=== PATIENT | female | born 1955 | race Hispanic/Latino ===

== ENCOUNTER 2020-06-19 10:05 | Observation (INO) | payer OTHER ==
[~2020-06-19] VITALS: Ht 154.9 cm; Wt 75.1 kg
[2020-06-19 10:46] LABS: BASOPHILS % 0.6 % (0.0-1.0); EOSINOPHILS # (AUTO) 0.1 (0.0-0.4); EOSINOPHILS % 1.7 % (0.0-6.0); HEMATOCRIT 37.7 % (34.2-44.1); HEMOGLOBIN 12.6 g/dL (12.0-16.0); LYMPHOCYTES # (AUTO) 2.4 (1.0-3.2); LYMPHOCYTES % 36.4 % (18.0-39.1); MEAN CORPUSCULAR HEMOGLOBIN 30.7 pg (28-32); MEAN CORPUSCULAR HGB CONC 33.4 g/dL (31-35); MEAN CORPUSCULAR VOLUME 91.7 fL (81-99); MONOCYTES # (AUTO) 0.5 (0.2-0.8); MONOCYTES % 7.2 % (4.4-11.3); NEUTROPHILS # (AUTO) 3.5 (2.1-6.9); NEUTROPHILS % 53.9 % (38.7-80.0); PLATELET COUNT 254 x10e3/uL (140-360); RED BLOOD COUNT 4.11 x10e6/uL (3.6-5.1); RED CELL DISTRIBUTION WIDTH 11.9 % (11.7-14.4)
[2020-06-19 11:12] LABS: ALANINE AMINOTRANSFERASE 20 IU/L (0-55); ALBUMIN 4.2 g/dL (3.5-5.0); ALBUMIN/GLOBULIN RATIO 1.4 (0.8-2.0); ALKALINE PHOSPHATASE 75 IU/L (40-150); ANION GAP 12.9 mmol/L (8-16); BLOOD UREA NITROGEN 6 mg/dL (7-26); BUN/CREATININE RATIO 6 (6-25); CALCIUM 9.1 mg/dL (8.4-10.2); CARBON DIOXIDE 26 mmol/L (22-29); CHLORIDE 107 mmol/L (98-107); CREATINE KINASE 85 IU/L (29-168); CREATININE, SERUM 0.93 mg/dL (0.57-1.11); EST GLOMERULAR FILTRATION RATE > 60 ML/MIN (60-); GLUCOSE 105 mg/dL (74-118); POTASSIUM 3.9 mmol/L (3.5-5.1); SODIUM 142 mmol/L (136-145)
--- NOTE | 2020-06-19 11:25 | Diagnostic Imaging Report ---
Examination: Single AP view of the chest. COMPARISON: None. INDICATION: Chest pain, right-sided DISCUSSION: The lungs are well inflated. No focal consolidation, pleural effusion, or pneumothorax. Cardiomediastinal contour and pulmonary vasculature are within normal limits when accounting for AP technique. No acute osseous abnormalities. IMPRESSION: 1. No acute cardiopulmonary abnormalities. Signed by: Dr. Jayy Christopher M.D. on 06/19/2020 11:22 AM
--- OUTSIDE RECORDS SUMMARY | 2020-06-19 11:42 | XMS REPORT | Continuity of Care Document ---
Author Author [facility] Organization [facility] Address [address] [place] [address] Phone Unavailable Care Team Providers Care Green Building Design Specialist Name Role Phone NONSTAFF PCP Unavailable Perla NEWBY Attphys Unavailable Rachell TEJEDA Attphys Unavailable Payers Payer Name Policy Type Policy Number Effective Date Expiration Date Perla Mcintosh [facility] [id number] 2012 00:00:00 [facility] Problems Condition Name Condition Details Condition Category Status Onset Date Resolution Date Last Treatment Date Treating Clinician Comments Source Chest pain Chest pain Problem Active C [facility] Allergies, Adverse Reactions, Alerts This patient has no known allergies or adverse reactions. Medications This patient has no known medications. Procedures Procedure Date / Time Performed Performing Clinician [facility] e X-ray of chest, single view 2018-03-21 00:00:00 PANKAJ FRANCISCO [facility] Encounters Start Date/Time End Date/Time Encounter Type Ad[facility] ID Source 2018-03-21 13:43:00 2018-03-23 14:00:00 Discharged Inpatient 1 PATRICIA TEJEDA [facility] [id number] [facility] Results Test Description Test Time Test Comments Results Result Comments Source CHEST SINGLE (PORTABLE) 2020-06-19 11:20:00 [facility] [address], [place] [address] Patient Name: EMPERATRIZ LOPEZ MR #: [id number] : 1955 Age/Sex: 65/F Req #: [id number] Adm Physician: Ordered by: BRAEDEN NEWBY DO Report #: [id number] Location: ER Room/Bed: Procedure: [id number] DX/CHEST SINGLE (PORTABLE) Exam Date: 06/19/20 Exam Time: 1106 REPORT STATUS: Signed Examination: Single AP view of the chest. COMPARISON: None. INDICATION: Chest pain, right-sided DISCUSSION: The lungs are well inflated. No focal consolidation, pleural effusion, or pneumothorax. Cardiomediastinal contour and pulmonary vasculature are within normal limits when accounting for AP technique. No acute osseous abnormalities. IMPRESSION: 1. No acute cardiopulmonary abnormalities. Signed by: Dr. Mike Donahue M.D. on 06/19/2020 11:22 AM Dictated By: MIKE DONAHUE MD 1122 Transcribed By: MARY ANNE on 06/19/20 1122 COPY TO: BRAEDEN NEWBY DO Triglycerides Level 2018-03-22 07:09:00 Test Item Triglycerides Level (test code = 2571-8) 105 0-149 [facility] Hkqwb0640-34-37 07:09:00* Test Item Value Reference Range Interpretation Comments Cholesterol Level (test code = 2093-3) 165 0-199 Less than 200 mg/dL Low Qpqq296 - 239 mg/dL Borderline Pwtr303 m g/dl and greater High Risk [facility]LDL Fysayzqyvxx2685-91-09 07:09:00* Test Item Value Reference Range Interpretation Comments LDL Cholesterol (test code = 2089-1) 104 60-130 [facility]anoHDL Evowxptarkq0623-00-24 07:09:00* Test Item Value Reference Range Interpretation Comments HDL Cholesterol (test code = 2085-9) 40 40-60 [facility]Cholesterol/HDL Jzfct0403-93-88 07:09:00 * Test Item Value Reference Range Interpretation Comments Cholesterol/HDL Ratio (test code = 9830-1) 4.1 3.0-3.6 H [facility]anoCreatine Dhyojf6031-88-48 07:09:00* Test Item Value Reference Range Interpretation Comments Creatine Kinase (test code = 2157-6) 90 29-168 [facility]anoCreatine Kinase [id number] 07:00:00* Test Item Value Reference Range Interpretation Comments Creatine Kinase MB (test code = 12192-7) 0.50 0-5.0 [facility]Troponin J1079-07-87 07:00:00* Test Item Value Reference Range Interpretation Comments Troponin I (test code = ZDH1106) -0.001 0-0.300 [facility]anoThyroid Stimulating Hormone (TSH) 2018-03-21 11:28:00* Test Item Value Reference Range Interpretation Comments Thyroid Stimulating Hormone (TSH) (test code = 28982-1) 1.751 0.350-4.940 [facility]anoCHEST SINGLE (NOT PORTABLE)2018-03-21 11:24:00 [place] [address] Patient Name: EMPERATRIZ SMITH MR #: [id number] : 1955 Age/Sex: 63/F Req #: [id number] Adm Physician: Ordered by: PANKAJ FRANCISCO MANAGER MEETING Report #: [id number] Location: ER Room/Bed: Procedure: DX/CHEST SINGLE (NOT PORTABLE) E anu Date: Exam Time: REPORT STATUS: Signed PROCEDURE: A single AP view of the chest. COMPARISON: None. INDIC ATIONS: CHEST PAIN SHOOTING TO MID BACK FINDINGS: Lines/tubes: No ne. Lungs: The lungs are well inflated and clear. There is no evidence of pneumonia or pulmonary edema. Pleura: There is no pleural effusion or pneumothorax. Heart and mediastinum: The heart and the mediastinum are u nremarkable. Bones: No acute bony abnormality. IMPRESSION: No ac [place] cardiopulmonary disease. Dictated by: Garth Rock M.D. on 03/21 at 11:24 Electronically approved by: Garth Rock M.D. on 018 at 11:24 Dictated By: GARTH ROCK MD Electronically Sig kylah By: GARTH ROCK MD on 03/21/18 1124 Transcribed By: LAVERN on 03/21/18 112 4 COPY TO: PANKAJ FRANCISCO MANAGER MEETING Sodium Onski5030-00-58 11:07:00* Test Item Value Reference Range Interpretation Comments Sodium Level (test code = 2951-2) 142 136-145 [facility]Potassium Pardp4363-11-44 11:07:00* Test Item Value Reference Range Interpretation Comments Potassium Level (test code = 2823-3) 3.6 3.5-5.1 [facility]anoChloride Oqtxz3768-98-54 11:07:00* Test Item Value Reference Range Interpretation Comments Chloride Level (test code = 2075-0) 105 98-107 [facility]anoCarbon Dioxide Ysiyl0530-25-50 11:07:00* Test Item Value Reference Range Interpretation Comments Carbon Dioxide Level (test code = 2028-9) 27 22-29 [facility]anoAnion Yxe5770-87-38 11:07:00* Test Item Value Reference Range Interpretation Comments Anion Gap (test code = 09733-7) 13.6 8-16 [facility] PlanoBlood Urea Bjrlxqns8731-19-26 11:07:00* Test Item Value Reference Range Interpretation Comments Blood Urea Nitrogen (test code = 3094-0) 15 7-26 [facility]anoCreatinine2018-06-20 11:07:00* Test Item Value Reference Range Interpretation Comments Creatinine (test code = 2160-0) 0.88 0.57-1.11 [facility]anoBUN/Creatinine Mqtyi5309-24-88 11:07:00* Test Item Value Reference Range Interpretation Comments BUN/Creatinine Ratio (test code = 3097-3) 17 6-25 [facility] PlanoEstimat Glomerular Filtration Rate 2018-03-21 11:07:00* Test Item Value Reference Range Interpretation Comments Estimat Glomerular Filtration Rate (test code = 73626-6) 60- >60 Ranges were taken from the National Kidney Disease Education Program and the [facility] Foundation literature.Reference ranges:60 or greater: Ftwlqs24-98 ( for 3 consecutive months): Chronic kidney disease 15 or less: Kidney failureBaylor Scott & White Medical Center – PlanoGlucose Taaso5818-12-99 11:07:00* Test Item Value Reference Range Interpretation Comments Glucose Level (test code = MFY7332) 112 74-118 [facility]anoCalcium Rrglt7544-75-91 11:07:00* Test Item Value Reference Range Interpretation Comments Calcium Level (test code = 18089-7) 9.4 8.4-10.2 [facility] PlanoMagnesium Cjcgc7430-23-46 11:07:00* Test Item Value Reference Range Interpretation Comments Magnesium Level (test code = 73423-2) 2.2 1.3-2.1 H [facility] PlanoTotal Riihzeciq0874-91-83 11:07:00* Test Item Value Reference Range Interpretation Comments Total Bilirubin (test code = 1975-2) 0.6 0.2-1.2 [facility] PlanoAspartate Amino Transf (AST/SGOT) 2018-03-21 11:07:00* Test Item Value Reference Range Interpretation Comments Aspartate Amino Transf (AST/SGOT) (test code = Aspartate Amino Transf (AST/SGOT)) 21 5-34 [facility]anoAlanine Aminotransferase (ALT/SGPT) 2018-03-21 11:07:00* Test Item Value Reference Range Interpretation Comments Alanine Aminotransferase (ALT/SGPT) (test code = 1742-6) 21 0-55 [facility] PlanoTotal Nzfxawb8248-23-78 11:07:00* Test Item Value Reference Range Interpretation Comments Total Protein (test code = 2885-2) 7.5 6.5-8.1 [facility] PlanoAlbumin2018-06-20 11:07:00* Test Item Value Reference Range Interpretation Comments Albumin (test code = 1751-7) 4.0 3.5-5.0 [facility]anoGlobulin2018-06-20 11:07:00* Test Item Value Reference Range Interpretation Comments Globulin (test code = 79848-2) 3.5 2.3-3.5 [facility] PlanoAlbumin/Globulin Hvjui9071-07-41 11:07:00 * Test Item Value Reference Range Interpretation Comments Albumin/Globulin Ratio (test code = 1759-0) 1.1 0.8-2.0 [facility] PlanoAlkaline Gvivtmzkazb2305-45-28 11:07:00* Test Item Value Reference Range Interpretation Comments Alkaline Phosphatase (test code = 6768-6) 70 40-150 [facility] PlanoB-Type Natriuretic Ugcotcl2764-48-65 11:07:00* Test Item Value Reference Range Interpretation Comments B-Type Natriuretic Peptide (test code = 31647-9) 67.7 0-100 [facility] PlanoLipase2018-06-20 11:07:00* Test Item Value Reference Range Interpretation Comments Lipase (test code = 3040-3) 25 8-78 [facility] PlanoUrine [id number] 11:02:00* Test Item Value Reference Range Interpretation Comments Urine WBC (test code = 5821-4) 6-10 0-5 H [facility] PlanoUrine NHJ0781-00-60 11:02:00* Test Item Value Reference Range Interpretation Comments Urine RBC (test code = 46826-2) NONE 0-5 [facility] PlanoUrine Ixfxvmdg5902-82-92 11:02:00* Test Item Value Reference Range Interpretation Comments Urine Bacteria (test code = 21635-2) RARE NONE [facility] PlanoUrine Epithelial Lfscp7251-41-53 11:02:00 * Test Item Value Reference Range Interpretation Comments Urine Epithelial Cells (test code = 12696-6) FEW NONE [facility] PlanoProthrombin Eddn0578-27-07 10:55:00* Test Item Value Reference Range Interpretation Comments Prothrombin Time (test code = 5902-2) 12.3 11.9-14.5 [facility] PlanoProthromb Time International Ratio 2018-03-21 10:55:00* Test Item Value Reference Range Interpretation Comments Prothromb Time International Ratio (test code = 6301-6) 0.99 Oral Anticoagulant Therapy INR Values:1. Low Intensity Therapy 1.5 - 2.02 . Moderate Intensity Therapy 2.0 - 3.03. High Intensity Therapy(1) 2.5 - 3. 54. High Intensity Therapy(2) 3.0 - 4.05. Panic Value INR > 5.0 [facility] PlanoActivated Partial Thromboplast Time 2018-03-21 10:55:00* Test Item Value Reference Range Interpretation Comments Activated Partial Thromboplast Time (test code = 85028-3) 28.3 23.8-35.5 [facility] PlanoUrine Crmbc1832-22-35 10:47:00* Test Item Value Reference Range Interpretation Comments Urine Color (test code = 5778-6) YELLOW YELLOW [facility] PlanoUrine Bdlxmvk7738-56-40 10:47:00* Test Item Value Reference Range Interpretation Comments Urine Clarity (test code = 05616-4) SL CLOUDY CLEAR [facility] PlanoUrine Specific Ymebced5408-97-24 10:47:00 * Test Item Value Reference Range Interpretation Comments Urine Specific [place] (test code = 5811-5) 1.005 1.010-1.02 5 L [facility] PlanoUrine dD7706-11-33 10:47:00* Test Item Value Reference Range Interpretation Comments Urine pH (test code = 41679-0) 7 5-7 [facility] PlanoUrine Leukocyte Kstematr5933-50-43 10:47:00* Test Item Value Reference Range Interpretation Comments Urine Leukocyte Esterase (test code = 5799-2) TRACE NEGATIVE H [facility] PlanoUrine Nyllolb5876-58-66 10:47:00* Test Item Value Reference Range Interpretation Comments Urine Nitrite (test code = 57674-0) NEGATIVE NEGATIVE [facility] PlanoUrine Fxlynzn2880-91-15 10:47:00* Test Item Value Reference Range Interpretation Comments Urine Protein (test code = 5804-0) NEGATIVE NEGATIVE [facility] PlanoUrine Glucose (UA)2018-03-21 10:47:00* Test Item Value Reference Range Interpretation Comments Urine Glucose (UA) (test code = 2349-9) NEGATIVE NEGATIVE [facility] PlanoUrine Oldgivt1007-94-48 10:47:00* Test Item Value Reference Range Interpretation Comments Urine Ketones (test code = 12341-9) NEGATIVE NEGATIVE [facility] Fnerjsybgdbs3175-67-29 10:47:00* Test Item Value Reference Range Interpretation Comments Urine Urobilinogen (test code = 35740-4) 0.2 0.2-1 [facility] PlanoUrine Zabxlupja7842-27-93 10:47:00* Test Item Value Reference Range Interpretation Comments Urine Bilirubin (test code = 1978-6) NEGATIVE NEGATIVE [facility] PlanoUrine Dlnlc7810-84-53 10:47:00* Test Item Value Reference Range Interpretation Comments Urine Blood (test code = 71693-5) NEGATIVE NEGATIVE [facility] PlanoWhite Blood Pyydd3713-59-63 10:44:00* Test Item Value Reference Range Interpretation Comments White Blood Count (test code = 6690-2) 6.63 4.8-10.8 [facility] PlanoRed Blood Ahffy7490-67-14 10:44:00* Test Item Value Reference Range Interpretation Comments Red Blood Count (test code = 789-8) 4.10 3.6-5.1 [facility]anoHemoglobin2018-06-20 10:44:00* Test Item Value Reference Range Interpretation Comments Hemoglobin (test code = 96237-8) 12.7 12.0-16.0 [facility] PlanoHematocrit2018-06-20 10:44:00* Test Item Value Reference Range Interpretation Comments Hematocrit (test code = 4544-3) 38.3 34.2-44.1 [facility] PlanoMean Corpuscular Euckbz9048-10-55 10:44:00* Test Item Value Reference Range Interpretation Comments Mean Corpuscular Volume (test code = 787-2) 93.4 81-99 [facility] PlanoMean Corpuscular Bvtsgteraw1043-16-53 10:44:00* Test Item Value Reference Range Interpretation Comments Mean Corpuscular Hemoglobin (test code = 785-6) 31.0 28-32 [facility] PlanoMean Corpuscular Hemoglobin Concent 2018-03-21 10:44:00* Test Item Value Reference Range Interpretation Comments Mean Corpuscular Hemoglobin Concent (test code = 786-4) 33.2 31-35 [facility] PlanoRed Cell Distribution Vqgtx7776-53-23 10:44:00* Test Item Value Reference Range Interpretation Comments Red Cell Distribution Width (test code = 76344-5) 11.9 11.7 -14.4 [facility] PlanoPlatelet Ngkfq2020-54-85 10:44:00* Test Item Value Reference Range Interpretation Comments Platelet Count (test code = 777-3) 253 140-360 [facility] PlanoNeutrophils (%) (Auto)2018-03-21 10:44:00 * Test Item Value Reference Range Interpretation Comments Neutrophils (%) (Auto) (test code = 59563-3) 58.7 38.7-80.0 [facility] PlanoLymphocytes (%) (Auto)2018-03-21 10:44:00 * Test Item Value Reference Range Interpretation Comments Lymphocytes (%) (Auto) (test code = 736-9) 33.3 18.0-39.1 [facility] PlanoMonocytes (%) (Auto)2018-03-21 10:44:00* Test Item Value Reference Range Interpretation Comments Monocytes (%) (Auto) (test code = 5905-5) 6.0 4.4-11.3 [facility]anoEosinophils (%) (Auto)2018-03-21 10:44:00 * Test Item Value Reference Range Interpretation Comments Eosinophils (%) (Auto) (test code = 713-8) 1.4 0.0-6.0 [facility]anoBasophils (%) (Auto)2018-03-21 10:44:00* Test Item Value Reference Range Interpretation Comments Basophils (%) (Auto) (test code = 706-2) 0.3 0.0-1.0 [facility] PlanoIM GRANULOCYTES %2018-03-21 10:44:00* Test Item Value Reference Range Interpretation Comments IM GRANULOCYTES % (test code = IM GRANULOCYTES %) 0.3 0.0- 1.0 [facility] PlanoNeutrophils # (Auto)2018-03-21 10:44:00* Test Item Value Reference Range Interpretation Comments Neutrophils # (Auto) (test code = 751-8) 3.9 2.1-6.9 [facility] PlanoLymphocytes # (Auto)2018-03-21 10:44:00* Test Item Value Reference Range Interpretation Comments Lymphocytes # (Auto) (test code = 10305-2) 2.2 1.0-3.2 [facility] PlanoMonocytes # (Auto)2018-03-21 10:44:00* Test Item Value Reference Range Interpretation Comments Monocytes # (Auto) (test code = 742-7) 0.4 0.2-0.8 [facility]anoEosinophils # (Auto)2018-03-21 10:44:00* Test Item Value Reference Range Interpretation Comments Eosinophils # (Auto) (test code = 711-2) 0.1 0.0-0.4 [facility]anoBasophils # (Auto)2018-03-21 10:44:00* Test Item Value Reference Range Interpretation Comments Basophils # (Auto) (test code = 704-7) 0.0 0.0-0.1 [facility] PlanoAbsolute Immature Granulocyte (auto 2018-03-21 10:44:00* Test Item Value Reference Range Interpretation Comments Absolute Immature Granulocyte (auto (nelson t code = Absolute Immature Granulocyte (auto) 0.02 0-0.1 [facility]
--- NOTE | 2020-06-19 11:47 | Emergency Department Note ---
History of Present Illnes History of Present Illness Chief Complaint: General Medicine Complaints History of Present Illness This is a 65 year old female arrives to the ED of pressure-like chest pain for several days now worsening. Patient's assessment is worse on exertion. Patient was at a primary care doctor's office when she was sent to the ED for high blood pressure and chest pain. . 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 Any updates have been documented here. Past Medical History Recent Fever: No Clinical Suspicion of Infectio: No New/Unexplained Change in Ment: No Past Medical History: Diabetes, Hyperlipedemia Other Medical History: Borderline Diabetes - per patient Past Surgical History: Hysterectomy, T&A Social History Smoking Cessation: Never Smoker Counseling Performed: No Alcohol Use: None Any Illegal Drug Use: No Physically hurt or threatened: No Other Any Pre-Existing Lines (PICC,: No Review of Systems Review of Systems Constitutional: Reports no symptoms EENTM: Reports no symptoms Cardiovascular: Reports as per HPI, Reports chest pain Respiratory: Reports no symptoms Gastrointestinal: Reports no symptoms Genitourinary: Reports no symptoms Musculoskeletal: Reports no symptoms Integumentary: Reports no symptoms Neurological: Reports no symptoms Psychological: Reports no symptoms Endocrine: Reports no symptoms Hematological/Lymphatic: Reports no symptoms Physical Exam Related Data Allergies: Coded Allergies: No Known Allergies (Unverified , 06/19/20) Triage Vital Signs Vital Signs Date Time Temp Pulse Resp B/P (MAP) Pulse Ox O2 Delivery O2 Flow Rate FiO2 06/19/20 10:10 98.8 64 21 129/88 97 Room Air Vital signs reviewed: Yes Physical Exam CONSTITUTIONAL Constitutional: Present well-developed, Present well-nourished HENT HENT: Present normocephalic, Present atraumatic, Present oropharynx clear/moist, Present nose normal HENT L/R: Present left ext ear normal, Present right ext ear normal EYES Eyes: Reports PERRL, Reports conjunctivae normal NECK Neck: Present ROM normal PULMONARY Pulmonary: Present effort normal, Present breath sounds normal CARDIOVASCULAR Cardiovascular: Present regular rhythm, Present heart sounds normal, Present capillary refill normal, Present normal rate GASTROINTESTINAL Abdominal: Present soft, Present nontender, Present bowel sounds normal GENITOURINARY Genitourinary: Present exam deferred SKIN Skin: Present warm, Present dry MUSCULOSKELETAL Musculoskeletal: Present ROM normal NEUROLOGICAL Neurological: Present alert, Present oriented x 3, Present no gross motor or sensory deficits PSYCHOLOGICAL Psychological: Present mood/affect normal, Present judgement normal Results Laboratory Result Diagram: 06/19/20 1035 Laboratory Laboratory Tests Test 06/19/20 10:35 White Blood Count 6.53 x10e3/uL (4.8-10.8) Red Blood Count 4.11 x10e6/uL (3.6-5.1) Hemoglobin 12.6 g/dL (12.0-16.0) Hematocrit 37.7 % (34.2-44.1) Mean Corpuscular Volume 91.7 fL (81-99) Mean Corpuscular Hemoglobin 30.7 pg (28-32) Mean Corpuscular Hemoglobin Concent 33.4 g/dL (31-35) Red Cell Distribution Width 11.9 % (11.7-14.4) Platelet Count 254 x10e3/uL (140-360) Neutrophils (%) (Auto) 53.9 % (38.7-80.0) Lymphocytes (%) (Auto) 36.4 % (18.0-39.1) Monocytes (%) (Auto) 7.2 % (4.4-11.3) Eosinophils (%) (Auto) 1.7 % (0.0-6.0) Basophils (%) (Auto) 0.6 % (0.0-1.0) Neutrophils # (Auto) 3.5 (2.1-6.9) Lymphocytes # (Auto) 2.4 (1.0-3.2) Monocytes # (Auto) 0.5 (0.2-0.8) Eosinophils # (Auto) 0.1 (0.0-0.4) Basophils # (Auto) 0.0 (0.0-0.1) Absolute Immature Granulocyte (auto 0.01 x10e3/uL (0-0.1) Assessment & Plan Medical Decision Making MDM 65-year-old female arrived to the ED with complaints of atypical chest pain. Patient with significant cardiac risk factors. Patient is a hospital for cardiac monitoring observation. Assessment & Plan Final Impression: (1) Chest pain Depart Disposition: ADMITTED Last Vital Signs Date Time Temp Pulse Resp B/P (MAP) Pulse Ox O2 Delivery O2 Flow Rate FiO2 06/19/20 10:44 57 12 129/88 98 Room Air 06/19/20 10:10 98.8 BRAEDEN NEWBY DO Jun 19, 2020 11:48
--- OUTSIDE RECORDS SUMMARY | 2020-06-19 12:10 | XMS REPORT | Continuity of Care Document ---
Author Author [facility] Organization [facility] Address [address] [place] [address] Phone Unavailable Care Team Providers Care Heat Engineering Teacher Name Role Phone NONSTAFF PCP Unavailable Perla NEWBY Attphys Unavailable Rachell TEJEDA Attphys Unavailable Payers Payer Name Policy Type Policy Number Effective Date Expiration Date Perla Mcintosh [facility] [id number] 2012 00:00:00 [facility] Problems Condition Name Condition Details Condition Category Status Onset Date Resolution Date Last Treatment Date Treating Clinician Comments Source Chest pain Chest pain Problem Active C [facility] Allergies, Adverse Reactions, Alerts This patient has no known allergies or adverse reactions. Medications This patient has no known medications. Procedures Procedure Date / Time Performed Performing Clinician [facility] e X-ray of chest, single view 2018-03-21 00:00:00 PANKAJ FRANCISCO [facility] Encounters Start Date/Time End Date/Time En[facility] Ad[facility] ID Source 2018-03-21 13:43:00 2018-03-23 14:00:00 Discharged Inpatient 1 PATRICIA TEJEDA [facility] [id number] [facility] Results Test Description Test Time Test Comments Results Result Comments Source CHEST SINGLE (PORTABLE) 2020-06-19 11:20:00 [facility] [address] [place], [place] [address] Patient Name: EMPERATRIZ LOPEZ MR #: [id number] : 1955 Age/Sex: 65/F Req #: [id number] Adm Physician: Ordered by: BRAEDEN NEWBY DO Report #: [id number] Location: ER Room/Bed: Procedure: [id number] DX/CHEST SINGLE (PORTABLE) Exam Date: 06/19/20 Exam [...] Level (test code = 2571-8) 105 0-149 [facility] Znivn1078-81-75 07:09:00* Test Item Value Reference Range Interpretation Comments Cholesterol Level (test code = 2093-3) 165 0-199 Less than 200 mg/dL Low Iosg571 - 239 mg/dL Borderline Qmqp796 m g/dl and greater High Risk [facility] HospitalLDL Zsqltkoasil0426-84-85 07:09:00* Test Item Value Reference Range Interpretation Comments LDL Cholesterol (test code = 2089-1) 104 60-130 [facility]HDL Crspwcvacku8410-17-79 07:09:00* Test Item Value Reference Range Interpretation Comments HDL Cholesterol (test code = 2085-9) 40 40-60 [facility]/HDL Kqtai2580-20-09 07:09:00 * Test Item Value Reference Range Interpretation Comments Cholesterol/HDL Ratio (test code = 9830-1) 4.1 3.0-3.6 H [facility] HospitalCreatine Janheb7532-86-16 07:09:00* Test Item Value Reference Range Interpretation Comments Creatine Kinase (test code = 2157-6) 90 29-168 [facility]Creat[facility] Kinase FK7514-68-78 07:00:00* Test Item Value Reference Range Interpretation Comments Creatine Kinase MB (test code = 39429-8) 0.50 0-5.0 [facility] HospitalTroponin Q6664-03-16 07:00:00* Test Item Value Reference Range Interpretation Comments Troponin I (test code = MIW1064) -0.001 0-0.300 [facility] HospitalThyroid Stimulating Hormone (TSH) 2018-03-21 11:28:00* Test Item Value Reference Range Interpretation Comments Thyroid Stimulating Hormone (TSH) (test code = 80643-0) 1.751 0.350-4.940 [facility] HospitalCHEST SINGLE (NOT PORTABLE)2018-03-21 11:24:00 [place] [address] Patient Name: EMPERATRIZ SMITH MR #: [id number] : 1955 Age/Sex: 63/F Req #: [id number] Adm Physician: Ordered by: PANKAJ FRANCISCO INDUSTRIAL HIRE SALES ASSISTANT Report #: [id number] Location: ER Room/Bed: Procedure: DX/CHEST SINGLE (NOT [...] No acute bony abnormality. IMPRESSION: No ac viejas cardiopulmonary disease. Dictated by: Garth Rock M.D. on 03/21 at 11:24 Electronically approved by: Garth Rock M.D. on 018 at 11:24 Dictated By: GARTH ROCK MD Electronically Sig kylah By: GARTH ROCK MD on 03/21/18 1124 Transcribed By: LAVERN on 03/21/18 112 4 COPY TO: PANKAJ FRANCISCO INDUSTRIAL HIRE SALES ASSISTANT Sodium Hoiun5344-35-55 11:07:00* Test Item Value Reference Range Interpretation Comments Sodium Level (test code = 2951-2) 142 136-145 [facility] HospitalPotassium Ezwkq5749-22-09 11:07:00* Test Item Value Reference Range Interpretation Comments Potassium Level (test code = 2823-3) 3.6 3.5-5.1 [facility] HospitalChloride Qxxrr4588-47-46 11:07:00* Test Item Value Reference Range Interpretation Comments Chloride Level (test code = 2075-0) 105 98-107 [facility] HospitalCarbon Dioxide Eqspe1307-60-47 11:07:00* Test Item Value Reference Range Interpretation Comments Carbon Dioxide Level (test code = 2028-9) 27 22-29 [facility] HospitalAnion Sdq7387-38-56 11:07:00* Test Item Value Reference Range Interpretation Comments Anion Gap (test code = 72872-6) 13.6 8-16 [facility] HospitalBlood Urea Jxdzsjia3903-43-22 11:07:00* Test Item Value Reference Range Interpretation Comments Blood Urea Nitrogen (test code = 3094-0) 15 7-26 [facility] HospitalCreatinine2018-06-20 11:07:00* Test Item Value Reference Range Interpretation Comments Creatinine (test code = 2160-0) 0.88 0.57-1.11 [facility] HospitalBUN/Creatinine Vmgkw0566-19-21 11:07:00* Test Item Value Reference Range Interpretation Comments BUN/Creatinine Ratio (test code = 3097-3) 17 6-25 [facility] HospitalEstimat Glomerular Filtration Rate 2018-03-21 11:07:00* Test Item Value Reference Range Interpretation Comments Estimat Glomerular Filtration Rate (test code = 07887-0) 60- >60 Ranges were taken from the National Kidney Disease Education Program and the [facility] Kidney Foundation literature.Reference ranges:60 or greater: Ggwoyp24-38 ( for 3 consecutive months): Chronic kidney disease 15 or less: Kidney failureNortheast Baptist HospitalGlucose Hcnkt8895-05-34 11:07:00* Test Item Value Reference Range Interpretation Comments Glucose Level (test code = KER3500) 112 74-118 [facility] HospitalCalcium Pxijf1903-65-40 11:07:00* Test Item Value Reference Range Interpretation Comments Calcium Level (test code = 31979-9) 9.4 8.4-10.2 [facility] HospitalMagnesium Nizih9899-23-75 11:07:00* Test Item Value Reference Range Interpretation Comments Magnesium Level (test code = 77852-9) 2.2 1.3-2.1 H [facility] HospitalTotal Iunlunozk7611-15-73 11:07:00* Test Item Value Reference Range Interpretation Comments Total Bilirubin (test code = 1975-2) 0.6 0.2-1.2 [facility] HospitalAspartate Amino Transf (AST/SGOT) 2018-03-21 11:07:00* Test Item Value Reference Range Interpretation Comments Aspartate Amino Transf (AST/SGOT) (test code = Aspartate Amino Transf (AST/SGOT)) 21 5-34 [facility] HospitalAlanine Aminotransferase (ALT/SGPT) 2018-03-21 11:07:00* Test Item Value Reference Range Interpretation Comments Alanine Aminotransferase (ALT/SGPT) (test code = 1742-6) 21 0-55 [facility] HospitalTotal Fotxrfh6971-97-26 11:07:00* Test Item Value Reference Range Interpretation Comments Total Protein (test code = 2885-2) 7.5 6.5-8.1 [facility] HospitalAlbumin2018-06-20 11:07:00* Test Item Value Reference Range Interpretation Comments Albumin (test code = 1751-7) 4.0 3.5-5.0 [facility] HospitalGlobulin2018-06-20 11:07:00* Test Item Value Reference Range Interpretation Comments Globulin (test code = 87750-9) 3.5 2.3-3.5 [facility] HospitalAlbumin/Globulin Aurqo0481-00-33 11:07:00 * Test Item Value Reference Range Interpretation Comments Albumin/Globulin Ratio (test code = 1759-0) 1.1 0.8-2.0 [facility] HospitalAlkaline Mppcddauler4336-44-91 11:07:00* Test Item Value Reference Range Interpretation Comments Alkaline Phosphatase (test code = 6768-6) 70 40-150 [facility] HospitalB-Type Natriuretic Joopxdx3503-24-64 11:07:00* Test Item Value Reference Range Interpretation Comments B-Type Natriuretic Peptide (test code = 67077-4) 67.7 0-100 [facility] HospitalLipase2018-06-20 11:07:00* Test Item Value Reference Range Interpretation Comments Lipase (test code = 3040-3) 25 8-78 [facility] HospitalUrine ZGA4496-93-68 11:02:00* Test Item Value Reference Range Interpretation Comments Urine WBC (test code = 5821-4) 6-10 0-5 H [facility] HospitalUrine DFB5305-84-85 11:02:00* Test Item Value Reference Range Interpretation Comments Urine RBC (test code = 32569-4) NONE 0-5 [facility] HospitalUrine Vkxflexk5983-46-42 11:02:00* Test Item Value Reference Range Interpretation Comments Urine Bacteria (test code = 30451-6) RARE NONE [facility] HospitalUrine Epithelial Skpzl4483-95-26 11:02:00 * Test Item Value Reference Range Interpretation Comments Urine Epithelial Cells (test code = 73494-0) FEW NONE [facility] HospitalProthrombin Leup4664-83-78 10:55:00* Test Item Value Reference Range Interpretation Comments Prothrombin Time (test code = 5902-2) 12.3 11.9-14.5 [facility] HospitalProthromb Time International Ratio 2018-03-21 10:55:00* Test Item Value Reference Range Interpretation Comments Prothromb Time International Ratio (test code = 6301-6) 0.99 Oral Anticoagulant Therapy INR Values:1. Low Intensity Therapy 1.5 - 2.02 . Moderate Intensity Therapy 2.0 - 3.03. High Intensity Therapy(1) 2.5 - 3. 54. High Intensity Therapy(2) 3.0 - 4.05. Panic Value INR > 5.0 [facility] HospitalActivated Partial Thromboplast Time 2018-03-21 10:55:00* Test Item Value Reference Range Interpretation Comments Activated Partial Thromboplast Time (test code = 22863-4) 28.3 23.8-35.5 [facility] HospitalUrine Qrqwv6040-70-61 10:47:00* Test Item Value Reference Range Interpretation Comments Urine Color (test code = 5778-6) YELLOW YELLOW [facility] HospitalUrine Jadudre8807-62-93 10:47:00* Test Item Value Reference Range Interpretation Comments Urine Clarity (test code = 01210-4) SL CLOUDY CLEAR [facility] HospitalUrine Specific Xllegzp8275-92-54 10:47:00 * Test Item Value Reference Range Interpretation Comments Urine Specific [place] (test code = 5811-5) 1.005 1.010-1.02 5 L [facility] HospitalUrine cC4507-01-66 10:47:00* Test Item Value Reference Range Interpretation Comments Urine pH (test code = 92524-2) 7 5-7 [facility] HospitalUrine Leukocyte Mouxauah3295-75-55 10:47:00* Test Item Value Reference Range Interpretation Comments Urine Leukocyte Esterase (test code = 5799-2) TRACE NEGATIVE H [facility] HospitalUrine Rpfuxsv6313-59-52 10:47:00* Test Item Value Reference Range Interpretation Comments Urine Nitrite (test code = 25820-5) NEGATIVE NEGATIVE [facility] HospitalUrine Zblzzhq5428-87-76 10:47:00* Test Item Value Reference Range Interpretation Comments Urine Protein (test code = 5804-0) NEGATIVE NEGATIVE [facility] HospitalUrine Glucose (UA)2018-03-21 10:47:00* Test Item Value Reference Range Interpretation Comments Urine Glucose (UA) (test code = 2349-9) NEGATIVE NEGATIVE [facility] HospitalUrine Rnhivzi4400-60-45 10:47:00* Test Item Value Reference Range Interpretation Comments Urine Ketones (test code = 34719-3) NEGATIVE NEGATIVE [facility] Npzdiieblyvw7707-16-32 10:47:00* Test Item Value Reference Range Interpretation Comments Urine Urobilinogen (test code = 39250-0) 0.2 0.2-1 [facility] HospitalUrine Tkbyyqlzh5876-02-38 10:47:00* Test Item Value Reference Range Interpretation Comments Urine Bilirubin (test code = 1978-6) NEGATIVE NEGATIVE [facility] HospitalUrine Ednel0369-49-53 10:47:00* Test Item Value Reference Range Interpretation Comments Urine Blood (test code = 40853-5) NEGATIVE NEGATIVE [facility] HospitalWhite Blood Gzyow6401-21-26 10:44:00* Test Item Value Reference Range Interpretation Comments White Blood Count (test code = 6690-2) 6.63 4.8-10.8 [facility] HospitalRed Blood Ccyeg7946-51-29 10:44:00* Test Item Value Reference Range Interpretation Comments Red Blood Count (test code = 789-8) 4.10 3.6-5.1 [facility] HospitalHemoglobin2018-06-20 10:44:00* Test Item Value Reference Range Interpretation Comments Hemoglobin (test code = 80595-7) 12.7 12.0-16.0 [facility] HospitalHematocrit2018-06-20 10:44:00* Test Item Value Reference Range Interpretation Comments Hematocrit (test code = 4544-3) 38.3 34.2-44.1 [facility] HospitalMean Corpuscular Zssdye5988-29-34 10:44:00* Test Item Value Reference Range Interpretation Comments Mean Corpuscular Volume (test code = 787-2) 93.4 81-99 [facility] HospitalMean Corpuscular Fabpqjbuzc7058-93-05 10:44:00* Test Item Value Reference Range Interpretation Comments Mean Corpuscular Hemoglobin (test code = 785-6) 31.0 28-32 [facility] HospitalMean Corpuscular Hemoglobin Concent 2018-03-21 10:44:00* Test Item Value Reference Range Interpretation Comments Mean Corpuscular Hemoglobin Concent (test code = 786-4) 33.2 31-35 [facility] HospitalRed Cell Distribution Hnpsb3485-58-40 10:44:00* Test Item Value Reference Range Interpretation Comments Red Cell Distribution Width (test code = 63266-4) 11.9 11.7 -14.4 [facility] HospitalPlatelet Lzcbg7758-78-05 10:44:00* Test Item Value Reference Range Interpretation Comments Platelet Count (test code = 777-3) 253 140-360 [facility] HospitalNeutrophils (%) (Auto)2018-03-21 10:44:00 * Test Item Value Reference Range Interpretation Comments Neutrophils (%) (Auto) (test code = 57217-1) 58.7 38.7-80.0 [facility] HospitalLymphocytes (%) (Auto)2018-03-21 10:44:00 * Test Item Value Reference Range Interpretation Comments Lymphocytes (%) (Auto) (test code = 736-9) 33.3 18.0-39.1 [facility] HospitalMonocytes (%) (Auto)2018-03-21 10:44:00* Test Item Value Reference Range Interpretation Comments Monocytes (%) (Auto) (test code = 5905-5) 6.0 4.4-11.3 [facility] HospitalEosinophils (%) (Auto)2018-03-21 10:44:00 * Test Item Value Reference Range Interpretation Comments Eosinophils (%) (Auto) (test code = 713-8) 1.4 0.0-6.0 [facility] HospitalBasophils (%) (Auto)2018-03-21 10:44:00* Test Item Value Reference Range Interpretation Comments Basophils (%) (Auto) (test code = 706-2) 0.3 0.0-1.0 [facility] HospitalIM GRANULOCYTES %2018-03-21 10:44:00* Test Item Value Reference Range Interpretation Comments IM GRANULOCYTES % (test code = IM GRANULOCYTES %) 0.3 0.0- 1.0 [facility] HospitalNeutrophils # (Auto)2018-03-21 10:44:00* Test Item Value Reference Range Interpretation Comments Neutrophils # (Auto) (test code = 751-8) 3.9 2.1-6.9 [facility] HospitalLymphocytes # (Auto)2018-03-21 10:44:00* Test Item Value Reference Range Interpretation Comments Lymphocytes # (Auto) (test code = 42881-0) 2.2 1.0-3.2 [facility] HospitalMonocytes # (Auto)2018-03-21 10:44:00* Test Item Value Reference Range Interpretation Comments Monocytes # (Auto) (test code = 742-7) 0.4 0.2-0.8 [facility] HospitalEosinophils # (Auto)2018-03-21 10:44:00* Test Item Value Reference Range Interpretation Comments Eosinophils # (Auto) (test code = 711-2) 0.1 0.0-0.4 [facility] HospitalBasophils # (Auto)2018-03-21 10:44:00* Test Item Value Reference Range Interpretation Comments Basophils # (Auto) (test code = 704-7) 0.0 0.0-0.1 [facility] HospitalAbsolute Immature Granulocyte (auto 2018-03-21 10:44:00* Test Item Value Reference Range Interpretation Comments Absolute Immature Granulocyte (auto (nelson t code = Absolute Immature Granulocyte (auto) 0.02 0-0.1 [facility]
--- OUTSIDE RECORDS SUMMARY | 2020-06-19 12:12 | XMS REPORT | Continuity of Care Document ---
Author Author [facility] Organization [facility] Address [address] [place] [address] Phone Unavailable Care Team Providers Care Video Rental Clerk Name Role Phone NONSTAFF PCP Unavailable Perla NEWBY Attphys Unavailable Rachell TEJEDA Attphys Unavailable Payers Payer Name Policy Type Policy Number Effective Date Expiration Date Perla Mcintosh [facility] [place] [id number] 2012 00:00:00 [facility] Problems Condition Name Condition Details Condition Category Status Onset Date Resolution Date Last Treatment Date Treating Clinician Comments Source Chest pain Chest pain Problem Active C [facility] Allergies, Adverse Reactions, Alerts This patient has no known allergies or adverse reactions. Medications This patient has no known medications. Procedures Procedure Date / Time Performed Performing Clinician [facility] e X-ray of chest, single view 2018-03-21 00:00:00 PANKAJ FRANCISCO [facility] Encounters Start Date/Time End Date/Time En[facility] Ad[facility] ID Source 2018-03-21 13:43:00 2018-03-23 14:00:00 Discharged Inpatient 1 PATRICIA TEJEDA [facility] [id number] [facility] Results Test Description Test Time Test Comments Results Result Comments Source CHEST SINGLE (PORTABLE) 2020-06-19 11:20:00 [facility] [address], [place] [address] Patient Name: EMPERATRIZ LOPEZ MR #: [id number] : 1955 Age/Sex: 65/F Req #: [id number] Adm Physician: Ordered by: BRAEDEN NEWBY DO Report #: [id number] Location: ER Room/Bed: Procedure: [id number] DX/CHEST SINGLE (PORTABLE) Exam Date: 06/19/20 Exam [...] Level (test code = 2571-8) 105 0-149 [facility] Vhtjs3843-79-18 07:09:00* Test Item Value Reference Range Interpretation Comments Cholesterol Level (test code = 2093-3) 165 0-199 Less than 200 mg/dL Low Hocf090 - 239 mg/dL Borderline Unex415 m g/dl and greater High Risk [facility] HospitalLDL Cghiyaiptby5996-45-47 07:09:00* Test Item Value Reference Range Interpretation Comments LDL Cholesterol (test code = 2089-1) 104 60-130 [facility] HospitalHDL Kvawrukyaxq7869-25-05 07:09:00* Test Item Value Reference Range Interpretation Comments HDL Cholesterol (test code = 2085-9) 40 40-60 [facility]Ch[facility]/HDL Caqqx4420-98-80 07:09:00 * Test Item Value Reference Range Interpretation Comments Cholesterol/HDL Ratio (test code = 9830-1) 4.1 3.0-3.6 H [facility] HospitalCreatine Btdyur6278-85-41 07:09:00* Test Item Value Reference Range Interpretation Comments Creatine Kinase (test code = 2157-6) 90 29-168 [facility] HospitalCreatine Kinase [id number] 07:00:00* Test Item Value Reference Range Interpretation Comments Creatine Kinase MB (test code = 59781-7) 0.50 0-5.0 [facility] HospitalTroponin [id number] 07:00:00* Test Item Value Reference Range Interpretation Comments Troponin I (test code = LUU3060) -0.001 0-0.300 [facility] HospitalThyroid Stimulating Hormone (TSH) 2018-03-21 11:28:00* Test Item Value Reference Range Interpretation Comments Thyroid Stimulating Hormone (TSH) (test code = 39102-2) 1.751 0.350-4.940 [facility] HospitalCHEST SINGLE (NOT PORTABLE)2018-03-21 11:24:00 [place] [address] Patient Name: EMPERATRIZ SMITH MR #: [id number] : 1955 Age/Sex: 63/F Req #: [id number] Adm Physician: Ordered by: PANKAJ FRANCISCO CLEAT BLANKER Report #: [id number] Location: ER Room/Bed: Procedure: DX/CHEST SINGLE (NOT [...] No acute bony abnormality. IMPRESSION: No ac [place] cardiopulmonary disease. Dictated by: Garth Rock M.D. on 03/21 at 11:24 Electronically approved by: Garth Rock M.D. on 018 at 11:24 Dictated By: GARTH ROCK MD Electronically Sig kylah By: GARTH ROCK MD on 03/21/18 1124 Transcribed By: LAVERN on 03/21/18 112 4 COPY TO: PANKAJ FRANCISCO CLEAT BLANKER Sodium Hhgtg6307-93-69 11:07:00* Test Item Value Reference Range Interpretation Comments Sodium Level (test code = 2951-2) 142 136-145 [facility] HospitalPotassium Duyas8206-67-99 11:07:00* Test Item Value Reference Range Interpretation Comments Potassium Level (test code = 2823-3) 3.6 3.5-5.1 [facility] HospitalChloride Bgwar0683-35-39 11:07:00* Test Item Value Reference Range Interpretation Comments Chloride Level (test code = 2075-0) 105 98-107 [facility] HospitalCarbon Dioxide Nmrbs9996-29-73 11:07:00* Test Item Value Reference Range Interpretation Comments Carbon Dioxide Level (test code = 2028-9) 27 22-29 [facility] HospitalAnion Ryi7412-38-68 11:07:00* Test Item Value Reference Range Interpretation Comments Anion Gap (test code = 59037-6) 13.6 8-16 [facility] HospitalBlood Urea Ybtavwkn5186-84-66 11:07:00* Test Item Value Reference Range Interpretation Comments Blood Urea Nitrogen (test code = 3094-0) 15 7-26 [facility] HospitalCreatinine2018-06-20 11:07:00* Test Item Value Reference Range Interpretation Comments Creatinine (test code = 2160-0) 0.88 0.57-1.11 [facility] HospitalBUN/Creatinine Wpjim2341-13-88 11:07:00* Test Item Value Reference Range Interpretation Comments BUN/Creatinine Ratio (test code = 3097-3) 17 6-25 [facility] HospitalEstimat Glomerular Filtration Rate 2018-03-21 11:07:00* Test Item Value Reference Range Interpretation Comments Estimat Glomerular Filtration Rate (test code = 30563-6) 60- >60 Ranges were taken from the National Kidney Disease Education Program and the [facility] Kidney Foundation literature.Reference ranges:60 or greater: Jagknm85-20 ( for 3 consecutive months): Chronic kidney disease 15 or less: Kidney failureLegent Orthopedic HospitalGlucose Rnmyh2279-11-57 11:07:00* Test Item Value Reference Range Interpretation Comments Glucose Level (test code = UAA3516) 112 74-118 [facility] HospitalCalcium Qywiu3696-68-86 11:07:00* Test Item Value Reference Range Interpretation Comments Calcium Level (test code = 73373-0) 9.4 8.4-10.2 [facility] HospitalMagnesium Jmhcw9855-30-58 11:07:00* Test Item Value Reference Range Interpretation Comments Magnesium Level (test code = 26483-8) 2.2 1.3-2.1 H [facility] HospitalTotal Ilabktdjx5018-92-57 11:07:00* Test Item Value Reference Range Interpretation Comments Total Bilirubin (test code = 1975-2) 0.6 0.2-1.2 [facility] HospitalAspartate Amino Transf (AST/SGOT) 2018-03-21 11:07:00* Test Item Value Reference Range Interpretation Comments Aspartate Amino Transf (AST/SGOT) (test code = Aspartate Amino Transf (AST/SGOT)) 21 5-34 [facility] HospitalAlanine Aminotransferase (ALT/SGPT) 2018-03-21 11:07:00* Test Item Value Reference Range Interpretation Comments Alanine Aminotransferase (ALT/SGPT) (test code = 1742-6) 21 0-55 [facility] HospitalTotal Ubolwmn3719-55-60 11:07:00* Test Item Value Reference Range Interpretation Comments Total Protein (test code = 2885-2) 7.5 6.5-8.1 [facility] HospitalAlbumin2018-06-20 11:07:00* Test Item Value Reference Range Interpretation Comments Albumin (test code = 1751-7) 4.0 3.5-5.0 [facility] HospitalGlobulin2018-06-20 11:07:00* Test Item Value Reference Range Interpretation Comments Globulin (test code = 12944-7) 3.5 2.3-3.5 [facility] HospitalAlbumin/Globulin Bsios1459-02-21 11:07:00 * Test Item Value Reference Range Interpretation Comments Albumin/Globulin Ratio (test code = 1759-0) 1.1 0.8-2.0 [facility] HospitalAlkaline Ntnlecluoxm4928-23-54 11:07:00* Test Item Value Reference Range Interpretation Comments Alkaline Phosphatase (test code = 6768-6) 70 40-150 [facility] HospitalB-Type Natriuretic Dwuidtm8337-68-49 11:07:00* Test Item Value Reference Range Interpretation Comments B-Type Natriuretic Peptide (test code = 89691-0) 67.7 0-100 [facility] HospitalLipase2018-06-20 11:07:00* Test Item Value Reference Range Interpretation Comments Lipase (test code = 3040-3) 25 8-78 [facility] HospitalUrine IDR2392-97-47 11:02:00* Test Item Value Reference Range Interpretation Comments Urine WBC (test code = 5821-4) 6-10 0-5 H [facility] HospitalUrine [id number] 11:02:00* Test Item Value Reference Range Interpretation Comments Urine RBC (test code = 72397-9) NONE 0-5 [facility] HospitalUrine Rtnwttfp0465-57-64 11:02:00* Test Item Value Reference Range Interpretation Comments Urine Bacteria (test code = 04983-0) RARE NONE [facility] HospitalUrine Epithelial Czzge6949-66-86 11:02:00 * Test Item Value Reference Range Interpretation Comments Urine Epithelial Cells (test code = 56722-6) FEW NONE [facility] HospitalProthrombin Rgrb2752-86-42 10:55:00* Test Item Value Reference Range Interpretation Comments Prothrombin Time (test code = 5902-2) 12.3 11.9-14.5 [facility] HospitalProthromb Time International Ratio 2018-03-21 10:55:00* Test Item Value Reference Range Interpretation Comments Prothromb Time International Ratio (test code = 6301-6) 0.99 Oral Anticoagulant Therapy INR Values:1. Low Intensity Therapy 1.5 - 2.02 . Moderate Intensity Therapy 2.0 - 3.03. High Intensity Therapy(1) 2.5 - 3. 54. High Intensity Therapy(2) 3.0 - 4.05. Panic Value INR > 5.0 [facility] HospitalActivated Partial Thromboplast Time 2018-03-21 10:55:00* Test Item Value Reference Range Interpretation Comments Activated Partial Thromboplast Time (test code = 97186-2) 28.3 23.8-35.5 [facility] HospitalUrine Bqciy2731-99-74 10:47:00* Test Item Value Reference Range Interpretation Comments Urine Color (test code = 5778-6) YELLOW YELLOW [facility] HospitalUrine Atiexvn2229-58-61 10:47:00* Test Item Value Reference Range Interpretation Comments Urine Clarity (test code = 54105-4) SL CLOUDY CLEAR [facility] HospitalUrine Specific Trsridp0805-48-49 10:47:00 * Test Item Value Reference Range Interpretation Comments Urine Specific [place] (test code = 5811-5) 1.005 1.010-1.02 5 L [facility] HospitalUrine eS5582-18-16 10:47:00* Test Item Value Reference Range Interpretation Comments Urine pH (test code = 47702-3) 7 5-7 [facility] HospitalUrine Leukocyte Huhsrndt7032-82-06 10:47:00* Test Item Value Reference Range Interpretation Comments Urine Leukocyte Esterase (test code = 5799-2) TRACE NEGATIVE H [facility] HospitalUrine Mnxbzhw6154-59-98 10:47:00* Test Item Value Reference Range Interpretation Comments Urine Nitrite (test code = 66502-1) NEGATIVE NEGATIVE [facility] HospitalUrine Awwfgfp0174-59-16 10:47:00* Test Item Value Reference Range Interpretation Comments Urine Protein (test code = 5804-0) NEGATIVE NEGATIVE [facility] HospitalUrine Glucose (UA)2018-03-21 10:47:00* Test Item Value Reference Range Interpretation Comments Urine Glucose (UA) (test code = 2349-9) NEGATIVE NEGATIVE [facility] HospitalUrine Aqcbykb4995-51-18 10:47:00* Test Item Value Reference Range Interpretation Comments Urine Ketones (test code = 73538-3) NEGATIVE NEGATIVE [facility] Eaeveotxvsxm3523-25-04 10:47:00* Test Item Value Reference Range Interpretation Comments Urine Urobilinogen (test code = 55603-1) 0.2 0.2-1 [facility] HospitalUrine Hlrbncqxd4993-66-50 10:47:00* Test Item Value Reference Range Interpretation Comments Urine Bilirubin (test code = 1978-6) NEGATIVE NEGATIVE [facility] HospitalUrine Svpht1651-02-89 10:47:00* Test Item Value Reference Range Interpretation Comments Urine Blood (test code = 49181-7) NEGATIVE NEGATIVE [facility] HospitalWhite Blood Wfuei4413-24-17 10:44:00* Test Item Value Reference Range Interpretation Comments White Blood Count (test code = 6690-2) 6.63 4.8-10.8 [facility] HospitalRed Blood Aursj7546-42-53 10:44:00* Test Item Value Reference Range Interpretation Comments Red Blood Count (test code = 789-8) 4.10 3.6-5.1 [facility] HospitalHemoglobin2018-06-20 10:44:00* Test Item Value Reference Range Interpretation Comments Hemoglobin (test code = 30572-2) 12.7 12.0-16.0 [facility] HospitalHematocrit2018-06-20 10:44:00* Test Item Value Reference Range Interpretation Comments Hematocrit (test code = 4544-3) 38.3 34.2-44.1 [facility] HospitalMean Corpuscular Nvtbit9637-99-35 10:44:00* Test Item Value Reference Range Interpretation Comments Mean Corpuscular Volume (test code = 787-2) 93.4 81-99 [facility] HospitalMean Corpuscular Veyjmydczq0535-35-79 10:44:00* Test Item Value Reference Range Interpretation Comments Mean Corpuscular Hemoglobin (test code = 785-6) 31.0 28-32 [facility] HospitalMean Corpuscular Hemoglobin Concent 2018-03-21 10:44:00* Test Item Value Reference Range Interpretation Comments Mean Corpuscular Hemoglobin Concent (test code = 786-4) 33.2 31-35 [facility] HospitalRed Cell Distribution Qrcfm9465-41-26 10:44:00* Test Item Value Reference Range Interpretation Comments Red Cell Distribution Width (test code = 60249-8) 11.9 11.7 -14.4 [facility] HospitalPlatelet Adagh9684-02-68 10:44:00* Test Item Value Reference Range Interpretation Comments Platelet Count (test code = 777-3) 253 140-360 [facility] HospitalNeutrophils (%) (Auto)2018-03-21 10:44:00 * Test Item Value Reference Range Interpretation Comments Neutrophils (%) (Auto) (test code = 51392-6) 58.7 38.7-80.0 [facility] HospitalLymphocytes (%) (Auto)2018-03-21 10:44:00 * Test Item Value Reference Range Interpretation Comments Lymphocytes (%) (Auto) (test code = 736-9) 33.3 18.0-39.1 [facility] HospitalMonocytes (%) (Auto)2018-03-21 10:44:00* Test Item Value Reference Range Interpretation Comments Monocytes (%) (Auto) (test code = 5905-5) 6.0 4.4-11.3 [facility] HospitalEosinophils (%) (Auto)2018-03-21 10:44:00 * Test Item Value Reference Range Interpretation Comments Eosinophils (%) (Auto) (test code = 713-8) 1.4 0.0-6.0 [facility] HospitalBasophils (%) (Auto)2018-03-21 10:44:00* Test Item Value Reference Range Interpretation Comments Basophils (%) (Auto) (test code = 706-2) 0.3 0.0-1.0 [facility] HospitalIM GRANULOCYTES %2018-03-21 10:44:00* Test Item Value Reference Range Interpretation Comments IM GRANULOCYTES % (test code = IM GRANULOCYTES %) 0.3 0.0- 1.0 [facility] HospitalNeutrophils # (Auto)2018-03-21 10:44:00* Test Item Value Reference Range Interpretation Comments Neutrophils # (Auto) (test code = 751-8) 3.9 2.1-6.9 [facility] HospitalLymphocytes # (Auto)2018-03-21 10:44:00* Test Item Value Reference Range Interpretation Comments Lymphocytes # (Auto) (test code = 93467-1) 2.2 1.0-3.2 [facility] HospitalMonocytes # (Auto)2018-03-21 10:44:00* Test Item Value Reference Range Interpretation Comments Monocytes # (Auto) (test code = 742-7) 0.4 0.2-0.8 [facility] HospitalEosinophils # (Auto)2018-03-21 10:44:00* Test Item Value Reference Range Interpretation Comments Eosinophils # (Auto) (test code = 711-2) 0.1 0.0-0.4 [facility] HospitalBasophils # (Auto)2018-03-21 10:44:00* Test Item Value Reference Range Interpretation Comments Basophils # (Auto) (test code = 704-7) 0.0 0.0-0.1 [facility] HospitalAbsolute Immature Granulocyte (auto 2018-03-21 10:44:00* Test Item Value Reference Range Interpretation Comments Absolute Immature Granulocyte (auto (nelson t code = Absolute Immature Granulocyte (auto) 0.02 0-0.1 [facility]
[2020-06-19] MEDS ORDERED: SIMVASTATIN40 MG PO (12:23)
--- NOTE | 2020-06-19 13:50 | NUR ---
PATIENT ARRIVED FROM ER TO ROOM 290, SHE IS IN STABLE CONDITION. ORIENTED TO ROOM AND POLICIES. CALL LIGHT WITHIN REACH. BED IN THE LOWEST POSITION.
[2020-06-19 14:54] VITALS: BP 128/82
[2020-06-19 15:05] VITALS: BP 128/82
[2020-06-19 15:22] VITALS: BP 118/59
[2020-06-19] MEDS ORDERED: CALCET TABLET1 EACH PO (15:25)
[2020-06-19] MEDS ORDERED: OMEPRAZOLE40 MG PO (15:25)
[2020-06-19 15:26] VITALS: BP 118/59
[2020-06-19] MEDS: ACETAMINOPHEN 325 MG TAB PO PRN (16:39)
--- NOTE | 2020-06-19 19:10 | NUR ---
BEDSIDE SHIFT REPORT GIVEN TO ONCOMING NURSE. PATIENT IS RESTING IN BED, NO ACUTE DISTRESS NOTED. CALL LIGHT WITHIN REACH. BED IN THE LOWEST POSITION.
[2020-06-19 20:00] VITALS: BP 105/52
[2020-06-19 21:00] VITALS: BP 105/52
[2020-06-19 21:07] LABS: CREATINE KINASE MB 0.6 ng/mL (0-5.0)
[2020-06-20] VITALS (8 sets, daily range): BP systolic 114–127; BP diastolic 67–71
[2020-06-20 04:15] LABS: CHOL/HDL RATIO 4.8 (3.0-3.6)
[2020-06-20 04:18] LABS: CREATINE KINASE 63 IU/L (29-168)
--- NOTE | 2020-06-20 07:37 | NUR ---
received pt from previous shift, pt c/o headache. pt resting in bed, pt told of next dose of tylenol
[2020-06-20] MEDS: ACETAMINOPHEN 325 MG TAB PO PRN ×2 (09:27→17:22)
[2020-06-20] MEDS: PANTOPRAZOLE SOD 40 MG TABEC PO SCH (17:21)
[2020-06-21] VITALS (8 sets, daily range): BP systolic 112–140; BP diastolic 61–82
[2020-06-21 07:21] LABS: BASOPHILS % 0.3 % (0.0-1.0); EOSINOPHILS # (AUTO) 0.2 (0.0-0.4); EOSINOPHILS % 2.8 % (0.0-6.0); HEMATOCRIT 39.4 % (34.2-44.1); HEMOGLOBIN 12.8 g/dL (12.0-16.0); LYMPHOCYTES # (AUTO) 2.3 (1.0-3.2); LYMPHOCYTES % 35.8 % (18.0-39.1); MEAN CORPUSCULAR HEMOGLOBIN 30.3 pg (28-32); MEAN CORPUSCULAR HGB CONC 32.5 g/dL (31-35); MEAN CORPUSCULAR VOLUME 93.4 fL (81-99); MONOCYTES # (AUTO) 0.6 (0.2-0.8); MONOCYTES % 9.3 % (4.4-11.3); NEUTROPHILS # (AUTO) 3.3 (2.1-6.9); NEUTROPHILS % 51.6 % (38.7-80.0); PLATELET COUNT 232 x10e3/uL (140-360); RED BLOOD COUNT 4.22 x10e6/uL (3.6-5.1)
[2020-06-21 07:33] LABS: ANION GAP 13.9 mmol/L (8-16); BLOOD UREA NITROGEN 10 mg/dL (7-26); BUN/CREATININE RATIO 11 (6-25); CALCIUM 9.3 mg/dL (8.4-10.2); CARBON DIOXIDE 27 mmol/L (22-29); CHLORIDE 106 mmol/L (98-107); CREATININE, SERUM 0.92 mg/dL (0.57-1.11); EST GLOMERULAR FILTRATION RATE > 60 ML/MIN (60-); GLUCOSE 102 mg/dL (74-118); POTASSIUM 3.9 mmol/L (3.5-5.1); SODIUM 143 mmol/L (136-145)
[2020-06-21] MEDS: PANTOPRAZOLE SOD 40 MG TABEC PO SCH (09:04)
[2020-06-22] VITALS: BP 92/69
[2020-06-22 04:00] VITALS: BP 102/57
[2020-06-22 06:18] LABS: BASOPHILS % 0.4 % (0.0-1.0); EOSINOPHILS # (AUTO) 0.2 (0.0-0.4); HEMATOCRIT 37.2 % (34.2-44.1); HEMOGLOBIN 12.7 g/dL (12.0-16.0); LYMPHOCYTES # (AUTO) 2.5 (1.0-3.2); LYMPHOCYTES % 33.1 % (18.0-39.1); MEAN CORPUSCULAR HEMOGLOBIN 33.2 pg (28-32); MEAN CORPUSCULAR HGB CONC 34.1 g/dL (31-35); MEAN CORPUSCULAR VOLUME 97.1 fL (81-99); MONOCYTES # (AUTO) 0.6 (0.2-0.8); MONOCYTES % 7.4 % (4.4-11.3); NEUTROPHILS # (AUTO) 4.3 (2.1-6.9); NEUTROPHILS % 56.8 % (38.7-80.0); PLATELET COUNT 184 x10e3/uL (140-360); RED BLOOD COUNT 3.83 x10e6/uL (3.6-5.1); RED CELL DISTRIBUTION WIDTH 12.6 % (11.7-14.4)
[2020-06-22 06:36] LABS: B-TYPE NATRIURETIC PEPTIDE2 29.7 pg/mL (0-100)
[2020-06-22 06:46] LABS: ALANINE AMINOTRANSFERASE 21 IU/L (0-55); ALBUMIN 4.1 g/dL (3.5-5.0); ALBUMIN/GLOBULIN RATIO 1.4 (0.8-2.0); ALKALINE PHOSPHATASE 71 IU/L (40-150); ANION GAP 13.1 mmol/L (8-16); BLOOD UREA NITROGEN 16 mg/dL (7-26); BUN/CREATININE RATIO 19 (6-25); CALCIUM 8.8 mg/dL (8.4-10.2); CARBON DIOXIDE 27 mmol/L (22-29); CHLORIDE 106 mmol/L (98-107); CREATININE, SERUM 0.83 mg/dL (0.57-1.11); EST GLOMERULAR FILTRATION RATE > 60 ML/MIN (60-); GLUCOSE 106 mg/dL (74-118); POTASSIUM 4.1 mmol/L (3.5-5.1); SODIUM 142 mmol/L (136-145)
[2020-06-22 06:47] LABS: THYROID STIMULATING HORMONE 1.544 uIU/mL (0.350-4.940)
[2020-06-22 07:23] VITALS: BP 147/60
[2020-06-22 07:27] VITALS: BP 147/60
[2020-06-22] MEDS: PANTOPRAZOLE SOD 40 MG TABEC PO SCH (07:57)
[2020-06-22 11:15] VITALS: BP 113/66
[2020-06-22] MEDS: ACETAMINOPHEN 325 MG TAB PO PRN (12:26)
[2020-06-22 15:23] VITALS: BP 100/63
--- NOTE | 2020-06-22 16:39 | NUR ---
CALL TO ADY WALKER REGARDING 3 DAY OBS. STATES HE WAS WAITING FOR [facility] TO SEE THE PT. INFORMED THE PT IS NOT MEETING. SPOKE Miguel Angel ALMODOVAR; PT'S NURSE. STATES THEY RECEIVED THE REFERRAL LATE YESTERDAY AND IT WAS CALLED. THE [employer]SEM[employer]ER CALLED TO CONFIRM [facility]I CONSULT WAS RECEIVED BY DR. BARKER.
--- NOTE | 2020-06-22 18:09 | NUR ---
spoke with Dr Houston cardiomoise. instructed to discharge patient home and follow up in office.
--- NOTE | 2020-06-22 19:55 | Discharge Summary ---
CONSULTING PHYSICIAN: Dr. Randall Joyce. CHIEF COMPLAINT: Chest pain. HISTORY OF PRESENT ILLNESS: The patient is a 65-year-old female with no previous past medical history, who was admitted with complaints of chest pain and headache. She reported having complaints of headache for 2 weeks. Chest x-ray was negative. PAST MEDICAL HISTORY: No past medical history. PAST SURGICAL HISTORY: None. FAMILY HISTORY: Noncontributory. SOCIAL HISTORY: Noncontributory. ALLERGIES: NO KNOWN ALLERGIES. ADMITTING DIAGNOSES: 1. Atypical chest pain. 2. Gastroesophageal reflux disease. DISCHARGING DIAGNOSES: 1. Atypical chest pain. 2. Hypertriglyceridemia. 3. Gastroesophageal reflux disease. 4. Asymptomatic bradycardia. HOSPITAL COURSE: Vital signs today; temperature 98.4, heart rate 64, respirations 17, blood pressure 100/63, pulse oximetry 97%. Labs on the day of discharge; WBC 7.52, hemoglobin 12.7, hematocrit 37.2, and platelets 184. Sodium 142, potassium 4.1, chloride 106, CO2 of 27, BUN 16, creatinine 0.83, estimated GFR greater than 60, glucose 106, hemoglobin A1c 5.9%, calcium 8.8, total bilirubin 0.3, AST 21, ALT 21, alkaline phosphatase 71. B-type natriuretic peptide 29.7, total protein 7.1, albumin 4.1, TSH 1.544. Coronavirus PCR on 06/19 was negative. Chest x-ray done on 06/19 shows no acute cardiopulmonary abnormalities. Echocardiogram preliminary result on 06/20 shows an ejection fraction of 65% to 70%. Triglycerides 178. Otherwise, lipids within normal limits. The patient discharged home on cardiac diet. EMILIO Govea spoke with Dr. Rex Houston with Cardiology Service, who stated patient could be discharged home. Bradycardia was noted on an EKG done on 06/21 with a heart rate of 46, sinus bradycardia. Today her heart rate 55, 62, 62, 60, and 64. No change in physical exam. Follow up with PCP in 1 to 2 weeks. Follow up with Cardiology as directed. Dictated by Arnav Pike NP MD MARITZA BernardP/MODJerrica /[id number]
== END 2020-06-22 18:26 | disposition home or self-care (01) ==
LOC: ER 10:35 → ERHOLD 11:33 → ER 11:38 → MED/SURG3 13:58
PROVIDERS: ADMIT Internal Medicine; ATTEND Internal Medicine
DX: R07.89 Other chest pain (principal); K21.9 Gastro-esophageal reflux disease without esophagitis; K44.9 Diaphragmatic hernia without obstruction or gangrene; R00.1 Bradycardia, unspecified; E78.1 Pure hyperglyceridemia; Z11.59 Encounter for screening for other viral diseases
CPT/HCPCS: 36415 ×4; 71045; 80048; 80053 ×2; 80061; 82550 ×2; 82553 ×2; 83036; 83880; 84443; 84484 ×2; 85025 ×3; 93005 ×2; 93306; 99284; G0378 ×4; S0164 ×3; U0002

== ENCOUNTER 2024-10-09 11:46 | Emergency (ER) | payer MEDICARE, OTHER ==
[~2024-10-09] VITALS: Ht 154.9 cm; Wt 74.8 kg
[~2024-10-09 11:46] MED LIST: CALCET TABLET1 EACH PO; OMEPRAZOLE40 MG PO; SIMVASTATIN40 MG PO
[2024-10-09 11:55] VITALS: TEMP 98.1
[2024-10-09 12:46] LABS: BASOPHILS % 0.6 % (0.0-1.0); EOSINOPHILS # (AUTO) 0.1 (0.0-0.4); EOSINOPHILS % 1.3 % (0.0-6.0); HEMATOCRIT 37.4 % (34.2-44.1); HEMOGLOBIN 12.5 g/dL (12.0-16.0); LYMPHOCYTES # (AUTO) 2.1 (1.0-3.2); LYMPHOCYTES % 28.8 % (18.0-39.1); MEAN CORPUSCULAR HEMOGLOBIN 31.6 pg (28-32); MEAN CORPUSCULAR HGB CONC 33.4 g/dL (31-35); MEAN CORPUSCULAR VOLUME 94.4 fL (81-99); MONOCYTES # (AUTO) 0.5 (0.2-0.8); MONOCYTES % 6.3 % (4.4-11.3); NEUTROPHILS # (AUTO) 4.5 (2.1-6.9); NEUTROPHILS % 62.7 % (38.7-80.0); PLATELET COUNT 254 x10e3/uL (140-360); RED BLOOD COUNT 3.96 x10e6/uL (3.6-5.1); RED CELL DISTRIBUTION WIDTH 12.3 % (11.7-14.4)
[2024-10-09 12:55] LABS: ALBUMIN 4.2 g/dL (3.5-5.0); ALBUMIN/GLOBULIN RATIO 1.3 (0.8-2.0); BILIRUBIN,TOTAL 0.5 mg/dL (0.2-1.2); CREATININE, SERUM 0.84 mg/dL (0.57-1.11); TOTAL PROTEIN 7.5 g/dL (6.5-8.1)
[2024-10-09 14:26] VITALS: PULSE 74; RESP 18; O2SAT 97
== END 2024-10-09 14:35 | disposition home or self-care (01) ==
LOC: ER 12:48
DX: R06.02 Shortness of breath (principal); R07.9 Chest pain, unspecified; E78.5 Hyperlipidemia, unspecified; R73.03 Prediabetes; R94.31 Abnormal electrocardiogram [ECG] [EKG]
CPT/HCPCS: 36415; 71045; 80053; 84484; 85025; 93005; 99283